=== PATIENT | female | born 2000 | race American Indian/Alaskan Native ===

== ENCOUNTER 2019-10-07 22:57 | Emergency (ER) | payer OTHER ==
[2019-10-07 23:11] VITALS: BP 113/79
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
== END 2019-10-08 03:55 | disposition home or self-care (01) ==
LOC: ED 22:57
DX: S02.5XXB Fracture of tooth (traumatic), initial encounter for open fracture (principal); V89.2XXA Person injured in unspecified motor-vehicle accident, traffic, initial encounter; Y93.89 Activity, other specified; Y92.410 Unspecified street and highway as the place of occurrence of the external cause; Y99.8 Other external cause status
CPT/HCPCS: 99282